=== PATIENT | female | born 1965 | race Two or more races ===

== ENCOUNTER 2021-10-28 15:41 | Inpatient (IN) | payer OTHER ==
[~2021-10-28] VITALS: Ht 147.3 cm; Wt 89.0 kg
[2021-10-28] MEDS ORDERED: ONDANSETRON HCL 4 MG/2 ML VIAL IV ONE (16:00)
[2021-10-28] MEDS ORDERED: methylPREDNISolone SOD SUCC 125 MG/2 ML VL IV ONE (16:00)
[2021-10-28] MEDS ORDERED: ALBUTEROL SULF 2.5 MG/0.5ML(0.5%) NEB SOLN HHN ONE (16:00)
[2021-10-28] MEDS ORDERED: IPRATROPIUM BROM 0.5 MG/2.5ML INH SOL HHN ONE (16:00)
[2021-10-28 16:22] LABS: Basophils # (auto) 0.1 10 ^3/uL (0-0.2); Eosinophils # (auto) 0 10 ^3/uL (0-0.8); Eosinophils % (auto) 0.2 % (0.0-7.0); Hematocrit 38.9 % (36.0-46.0); Hemoglobin 12.8 g/dL (12.2-16.2); Lymphocytes # (auto) 1.5 10 ^3/uL (0.4-5.4); Lymphocytes % (auto) 11.2 % (10.0-50.0); Mean Corpuscular Hemoglobin 29.6 pg (28.0-32.0); Mean Corpuscular Volume 89.7 fL (80.0-100.0); Monocytes # (auto) 0.7 10 ^3/uL (0-1.3); Monocytes % (auto) 5.1 % (0.0-12.0); Neutrophils % (auto) 82.5 % (37.0-80.0); Red Blood Cells 4.33 10^6/uL (4.0-5.20); Red Cell Distribution Width 13.9 % (11.8-14.3); White Blood Cell 13.4 10^3/uL (4.4-10.8)
[2021-10-28 16:52] LABS: Albumin 3.6 g/dL (3.4-5.0); Calcium 8.8 mg/dL (8.5-10.1)
[2021-10-28 16:54] LABS: Lactic Acid w/Reflex 2.1 mmol/L (0.4-2.0)
[2021-10-28 16:55] LABS: BUN/Creatinine Ratio 12.6; Bilirubin, Total 0.4 mg/dL (0.2-1.0); Total Protein 7.6 g/dL (6.4-8.2)
[2021-10-28] MEDS ORDERED: FUROSEMIDE 20 MG/2 ML VIAL IV ONE (17:30)
[2021-10-28] MEDS ORDERED: ONDANSETRON HCL 4 MG/2 ML VIAL IV PRN (21:45)
[2021-10-28] MEDS ORDERED: DOCUSATE SOD 100 MG CAP PO PRN (21:45)
[2021-10-28] MEDS ORDERED: cefTRIAXone 1GM/50ML D5W 50 ML IV ONE (21:45)
[2021-10-28] MEDS: FAMOTIDINE (10MG/ML) 2ML VL IV SCH (22:14)
[2021-10-28] MEDS: methylPREDNISolone SOD SUCC 40 MG/ML VL IV SCH (22:15)
[2021-10-28] MEDS: ASCORBIC ACID 500 MG TAB PO SCH (22:17)
[2021-10-28] MEDS: ACETAMINOPHEN 325 MG TAB PO PRN (22:17)
[2021-10-28] MEDS ORDERED: NITROGLYCERIN 0.4 MG SL TAB SL PRN (23:45)
[2021-10-28] MEDS ORDERED: MORPHINE SULFATE INJECTION 2 MG/ML SYRG IV PRN (23:45)
[2021-10-29] VITALS (7 sets, daily range): BP systolic 98–122; BP diastolic 49–69
[2021-10-29] MEDS: HYDROcodone-ACET 5/325MG TAB PO PRN (01:30)
[2021-10-29] MEDS ORDERED: ALBU108A5 INH (04:53)
[2021-10-29] MEDS ORDERED: MONT-8 PO (04:53)
[2021-10-29] MEDS ORDERED: POM IN ×2 (04:54→04:57)
[2021-10-29] MEDS ORDERED: TIOT17SP INH (04:57)
[2021-10-29] MEDS ORDERED: OMEP-260 PO (04:57)
[2021-10-29] MEDS: methylPREDNISolone SOD SUCC 40 MG/ML VL IV SCH ×2 (06:00→21:11)
[2021-10-29 08:13] LABS: Basophils # (auto) 0 10 ^3/uL (0-0.2); Basophils % (auto) 0.1 % (0.0-2.0); Eosinophils # (auto) 0 10 ^3/uL (0-0.8); Hematocrit 37.5 % (36.0-46.0); Hemoglobin 12.6 g/dL (12.2-16.2); Lymphocytes # (auto) 1.5 10 ^3/uL (0.4-5.4); Mean Corpuscular Hemoglobin 29.9 pg (28.0-32.0); Mean Corpuscular Hgb Conc. 33.6 g/dL (32.0-36.0); Monocytes # (auto) 0.7 10 ^3/uL (0-1.3); Monocytes % (auto) 3.7 % (0.0-12.0); Neutrophils # (auto) 16.6 10 ^3/uL (1.6-8.6); Neutrophils % (auto) 88.2 % (37.0-80.0); Red Blood Cells 4.21 10^6/uL (4.0-5.20); White Blood Cell 18.8 10^3/uL (4.4-10.8)
[2021-10-29 08:19] LABS: Albumin 3.2 g/dL (3.4-5.0); BUN/Creatinine Ratio 11.9; Potassium 4.2 mmol/L (3.5-5.1)
[2021-10-29 08:22] LABS: Bilirubin, Total 0.3 mg/dL (0.2-1.0); Total Protein 7.5 g/dL (6.4-8.2)
[2021-10-29 08:28] LABS: Lactic Acid w/Reflex 2.3 mmol/L (0.4-2.0)
[2021-10-29] MEDS: FAMOTIDINE (10MG/ML) 2ML VL IV SCH (09:03)
[2021-10-29] MEDS: MULTIPLE VITAMIN TAB PO SCH (09:03)
[2021-10-29] MEDS: ASCORBIC ACID 500 MG TAB PO SCH (09:03)
[2021-10-29] MEDS: FUROSEMIDE 20 MG/2 ML VIAL IV SCH (09:04)
[2021-10-29] MEDS: ENOXAPARIN SOD 40 MG/0.4 ML SYRINGE SC SCH (09:04)
[2021-10-29] MEDS: cefTRIAXone 1GM/50ML D5W 50 ML IV SCH (09:05)
[2021-10-29] MEDS: ACETAMINOPHEN 325 MG TAB PO PRN (09:05)
[2021-10-29] MEDS: ALBUTEROL SULF 2.5 MG/0.5ML(0.5%) NEB SOLN NEB PRN (09:45)
[2021-10-29] MEDS: IPRATROPIUM BROM 0.5 MG/2.5ML INH SOL NEB PRN (09:45)
[2021-10-29] MEDS ORDERED: ZINC SULFATE 220mg CAP or TAB PO SCH (10:00)
[2021-10-29] MEDS ORDERED: AZITHROMYCIN 500MG/ 250ML 250 ML IV ONE (13:00)
[2021-10-29] MEDS ORDERED: FUROSEMIDE 20 MG/2 ML VIAL IV ONE (13:00)
[2021-10-29] MEDS ORDERED: POTASSIUM CHL 20 Meq TABLET PO ONE (13:00)
[2021-10-29] MEDS ORDERED: FAMOTIDINE (10MG/ML) 2ML VL IV ONE (13:15)
[2021-10-29 16:28] LABS: Urine Bacteria NONE SEEN /hpf (None Seen); Urine Blood Negative /uL (Negative); Urine Hyaline Cast FEW /lpf (0 - 2); Urine Mucus FEW (None Seen); Urine Specific Gravity 1.017 (1.001-1.035); Urine WBC 1 /hpf (0 - 5)
[2021-10-30] MEDS: IPRATROPIUM BROM 0.5 MG/2.5ML INH SOL NEB PRN ×3 (00:28→19:55)
[2021-10-30] MEDS: ALBUTEROL SULF 2.5 MG/0.5ML(0.5%) NEB SOLN NEB PRN ×4 (00:28→19:54)
[2021-10-30] MEDS: ACETAMINOPHEN 325 MG TAB PO PRN ×2 (01:11→21:31)
[2021-10-30 04:53] VITALS: BP 106/69
[2021-10-30] MEDS: HYDROcodone-ACET 5/325MG TAB PO PRN (07:09)
[2021-10-30 09:00] VITALS: BP 106/63
[2021-10-30] MEDS: methylPREDNISolone SOD SUCC 40 MG/ML VL IV SCH ×2 (09:11→21:31)
[2021-10-30] MEDS: FUROSEMIDE 20 MG/2 ML VIAL IV SCH (09:12)
[2021-10-30] MEDS: ENOXAPARIN SOD 40 MG/0.4 ML SYRINGE SC SCH (09:13)
[2021-10-30] MEDS: FAMOTIDINE (10MG/ML) 2ML VL IV SCH (09:13)
[2021-10-30] MEDS: cefTRIAXone 1GM/50ML D5W 50 ML IV SCH (09:13)
[2021-10-30] MEDS: MULTIPLE VITAMIN TAB PO SCH (09:25)
[2021-10-30] MEDS: POTASSIUM CHL 20 Meq TABLET PO SCH (09:25)
[2021-10-30 10:03] LABS: Calcium 8.9 mg/dL (8.5-10.1); Magnesium 2.6 mg/dL (1.6-2.6); Potassium 4.1 mmol/L (3.5-5.1)
[2021-10-30 10:05] LABS: BUN/Creatinine Ratio 20.2
[2021-10-30] MEDS: AZITHROMYCIN 500MG/ 250ML 250 ML IV SCH (10:21)
[2021-10-30 13:00] VITALS: BP 98/60
[2021-10-30 17:00] VITALS: BP 108/66
[2021-10-30 22:00] VITALS: BP 102/53
[2021-10-31] MEDS: ALBUTEROL SULF 2.5 MG/0.5ML(0.5%) NEB SOLN NEB PRN ×2 (02:37→07:54)
[2021-10-31] MEDS: IPRATROPIUM BROM 0.5 MG/2.5ML INH SOL NEB PRN ×2 (02:38→07:54)
[2021-10-31 05:00] VITALS: BP 121/75
[2021-10-31 07:11] LABS: Basophils # (auto) 0 10 ^3/uL (0-0.2); Basophils % (auto) 0.4 % (0.0-2.0); Eosinophils # (auto) 0 10 ^3/uL (0-0.8); Hematocrit 38.4 % (36.0-46.0); Hemoglobin 13.1 g/dL (12.2-16.2); Lymphocytes # (auto) 1.1 10 ^3/uL (0.4-5.4); Lymphocytes % (auto) 11.3 % (10.0-50.0); Mean Corpuscular Hemoglobin 30.4 pg (28.0-32.0); Mean Corpuscular Hgb Conc. 34.1 g/dL (32.0-36.0); Mean Corpuscular Volume 89.2 fL (80.0-100.0); Monocytes # (auto) 0.3 10 ^3/uL (0-1.3); Monocytes % (auto) 3.7 % (0.0-12.0); Neutrophils # (auto) 7.9 10 ^3/uL (1.6-8.6); Neutrophils % (auto) 84.6 % (37.0-80.0); Red Blood Cells 4.31 10^6/uL (4.0-5.20); Red Cell Distribution Width 13.5 % (11.8-14.3); White Blood Cell 9.4 10^3/uL (4.4-10.8)
[2021-10-31] MEDS: cefTRIAXone 1GM/50ML D5W 50 ML IV SCH (08:53)
[2021-10-31] MEDS: POTASSIUM CHL 20 Meq TABLET PO SCH (08:54)
[2021-10-31] MEDS: MULTIPLE VITAMIN TAB PO SCH (08:54)
[2021-10-31] MEDS: FUROSEMIDE 20 MG/2 ML VIAL IV SCH (08:54)
[2021-10-31] MEDS: methylPREDNISolone SOD SUCC 40 MG/ML VL IV SCH (08:54)
[2021-10-31] MEDS: ENOXAPARIN SOD 40 MG/0.4 ML SYRINGE SC SCH (08:54)
[2021-10-31 09:00] VITALS: BP 122/83
[2021-10-31] MEDS: ACETAMINOPHEN 325 MG TAB PO PRN (09:00)
[2021-10-31] MEDS: FAMOTIDINE (10MG/ML) 2ML VL IV SCH (09:00)
[2021-10-31] MEDS: AZITHROMYCIN 500MG/ 250ML 250 ML IV SCH (10:31)
== END 2021-10-31 13:50 | disposition home or self-care (01) | DRG 871 ==
LOC: EDBD 15:41 → ER 15:41 → TELE-WESTW 23:40
PROVIDERS: ADMIT Nurse Practitioner Family; ATTEND Internal Medicine
DX: A41.9 Sepsis, unspecified organism (principal); J18.9 Pneumonia, unspecified organism; J96.01 Acute respiratory failure with hypoxia; I50.31 Acute diastolic (congestive) heart failure; J45.42 Moderate persistent asthma with status asthmaticus; Z68.41 Body mass index [BMI] 40.0-44.9, adult; R73.9 Hyperglycemia, unspecified; K21.9 Gastro-esophageal reflux disease without esophagitis; Z20.822 Contact with and (suspected) exposure to COVID-19; E66.01 Morbid (severe) obesity due to excess calories; Z88.6 Allergy status to analgesic agent; Z79.899 Other long term (current) drug therapy; Z98.891 History of uterine scar from previous surgery; Z98.51 Tubal ligation status
CPT/HCPCS: 36415; 71045; 80048; 80053; 81001; 83036; 83605; 83735; 83880; 84443; 84484; 85025; 87040; 93005; 93306; 94640; 94644; 96365; 96375; 99291; G0378; J0696; J2405; J3490